=== PATIENT | male | born 1970 | race Two or more races ===

== ENCOUNTER 2019-08-02 16:46 | Emergency (ER) | payer MEDICAID ==
[~2019-08-02] VITALS: Ht 167.6 cm; Wt 82.1 kg
[2019-08-02 17:24] VITALS: BP 155/93
--- NOTE | 2019-08-02 17:30 | NUR ---
ED Nurse Note: Patient arrived to ED by car from home complaining of body aches and sore thorat x 2-3 days. AxO x 4, no acute distress at this time.
--- NOTE | 2019-08-02 18:05 | Emergency Room Report ---
History of Present Illness General Chief Complaint: Upper Respiratory Illness Present Illness HPI 49-year-old male presents to the emergency department complaining of fevers, body aches, chills, sore throat, cough and generalized malaise x2 days. Patient reports he did not receive this years flu vaccine because he does not believe in it. He reports he is vaccinated otherwise. Patient denies neck pain /stiffness, photophobia or headache. Patient rates his pain as 10 out of 10 severity. Patient reports he has been taking both Tylenol and Motrin which has not been helping with his fevers. Patient produced bottles of his medication and it appears he has been taking children's medication at a children's dose. No significant past medical history no other aggravating or relieving factors at this time. Denies recent travel or ill contacts. Allergies: Coded Allergies: No Known Allergies (Unverified , 08/02/19) Patient History Past Medical History: see triage record Past Surgical History: none Pertinent Family History: none Reviewed Nursing Documentation: PMH: Agreed; PSxH: Agreed Review of Systems All Other Systems: negative except mentioned in HPI Physical Exam Vital Signs Date Time Temp Pulse Resp B/P (MAP) Pulse Ox O2 Delivery O2 Flow Rate FiO2 08/02/19 17:16 102.2 111 18 155/93 (113) 94 Room Air Sp02 EP Interpretation: reviewed, normal General Appearance: no apparent distress, alert, GCS 15, non-toxic Head: normocephalic, atraumatic Eyes: bilateral eye normal inspection, bilateral eye PERRL, bilateral eye other - no photophobia ENT: hearing grossly normal, normal pharynx, normal voice, TMs + canals normal , uvula midline, moist mucus membranes, pharyngeal erythema Neck: full range of motion, no meningismus, no bony tend Respiratory: chest non-tender, lungs clear, normal breath sounds, no respiratory distress, no accessory muscle use, no wheezing, speaking full sentences Cardiovascular #1: regular rate, rhythm Gastrointestinal: non tender, soft Musculoskeletal: normal range of motion, gait/station normal, non-tender Neurologic: alert, motor strength/tone normal, oriented x3, sensory intact, responsive, speech normal Psychiatric: judgement/insight normal Skin: no rash, normal color, normal inspection Lymphatic: no adenopathy Medical Decision Making PA Attestation Dr. Jackson Is my supervising Physician whom patient management has been discussed with. Diagnostic Impression: Primary Impression: Acute viral syndrome ER Course 49-year-old male presents to the emergency department complaining of fevers, body aches, chills, sore throat, cough and generalized malaise x2 days. Patient reports he did not receive this years flu vaccine because he does not believe in it. He reports he is vaccinated otherwise. Patient denies neck pain /stiffness, photophobia or headache. Patient rates his pain as 10 out of 10 severity. Patient reports he has been taking both Tylenol and Motrin which has not been helping with his fevers. Patient produced bottles of his medication and it appears he has been taking children's medication at a children's dose. No significant past medical history no other aggravating or relieving factors at this time. Denies recent travel or ill contacts. Ddx considered but are not limited to URI, pneumonia, PE, strep pharyngitis, meningitis, influenza, OM/OE just to name a few. Vital signs: Pt. is tachycardic and febrile H&PE are most consistent with Viral Syndrome suspicious for Influenza will treat clinically - no meningeal signs, Lungs are clear and oropharynx is not involved, no evidence of bacterial infection at this time. ORDERS: -- Flu Swab: Negative ED INTERVENTIONS: -IBU 600 Mg -Tylenol PO -Toradol IM --PT. EDUCATION: --I discussed with this patient that I will be prescribing Tamiflu which is an antiviral. This medication is not always covered by insurance and is not always available at pharmacies. I educated patient that this medication has been shown to reduce symptoms by 1 day, and if unable to obtain there is no alternative, and to continue conservative treatment. DISCHARGE: At this time pt. is stable for d/c to home. Will provide printed patient care instructions, and any necessary prescriptions. Care plan and follow up instructions have been discussed with the patient prior to discharge. Last Vital Signs Date Time Temp Pulse Resp B/P (MAP) Pulse Ox O2 Delivery O2 Flow Rate FiO2 08/02/19 17:16 102.2 111 18 155/93 (113) 94 Room Air Disposition: HOME, SELF-CARE Condition: Stable Scripts Oseltamivir Phosphate (Tamiflu) 75 Mg Capsule 75 MG ORAL TWICE A DAY, #10 CAP Prov: Audrey Townsend 08/02/19 Ibuprofen* (MOTRIN*) 600 Mg Tablet 600 MG ORAL THREE TIMES A DAY, #30 TAB 0 Refills Prov: Audrey Townsend 08/02/19 Acetaminophen* (TYLENOL EXTRA STRENGTH*) 500 Mg Tablet 500 MG ORAL Q6H PRN for Mild Pain/Temp > 100.5, #30 TAB 0 Refills Prov: Audrey Townsend 08/02/19 Codeine/Promethazine Hcl* (PROMETHAZINE-CODEINE SYRUP*) 118 Ml Syrup 5 ML ORAL Q6H PRN for For Cough, #120 ML 0 Refills Prov: Audrey Townsend 08/02/19 Patient Instructions: Upper Respiratory Infection, Adult Additional Instructions: Take medications as directed. Follow up with a Primary Care Provider in 3-5 days, even if your symptoms have resolved. --Please review list of primary care clinics, if you do not already have a primary care provider Return sooner to ED if new symptoms occur, or current symptoms become worse. Do not drink alcohol, drive, or operate heavy machinery while taking Cough Syrup as this may cause drowsiness. - Please note that this Emergency Department Report was dictated using [employer] execution consultant technology software, occasionally this can lead to erroneous entry secondary to interpretation by the dictation equipment. Audrey Townsend Aug 02, 2019 18:05
[2019-08-02] MEDS ORDERED: TYLENOL EXTRA500 MG ORAL (18:53)
[2019-08-02] MEDS ORDERED: PROMETHAZINE-C118 M1 ORAL (18:53)
[2019-08-02] MEDS ORDERED: ZITHROMAX250 MG ORAL (18:53)
[2019-08-02] MEDS ORDERED: IBUPROFEN600 MG ORAL (18:53)
[2019-08-02] MEDS ORDERED: TAMIFLU75 MG ORAL (18:55)
[2019-08-02] MEDS ORDERED: Ketorolac 30mg Inj IM ONE (19:00)
[2019-08-02 19:17] VITALS: BP 155/93
--- NOTE | 2019-08-02 19:17 | NUR ---
ED Nurse Note: Pt cleared by ERMD for discharge. DC instructions/prescription was given and explained to pt and verbalized understanding of teachings. All medical deviecs such as ID band removed. Pt is AAO x4, ambulatory and left with all personal belongings.
== END 2019-08-02 19:17 | disposition home or self-care (01) ==
LOC: EMR 17:31
DX: B34.9 Viral infection, unspecified (principal)
CPT/HCPCS: 86710; 96372; J1885; Z7502; 99283